=== PATIENT | female | born 2000 | race Hispanic/Latino ===

== ENCOUNTER 2022-04-15 06:13 | Emergency (ER) | payer MEDICAID, OTHER ==
[~2022-04-15] VITALS: Ht 154.9 cm; Wt 49.9 kg
[2022-04-15 06:23] VITALS: BP 111/71
[2022-04-15] MEDS ORDERED: BENZ-39 PO (07:22)
[2022-04-15] MEDS ORDERED: ALBUHFA IH (07:22)
[2022-04-15] MEDS ORDERED: ONDA4TAB10 PO (07:25)
== END 2022-04-15 07:28 | disposition home or self-care (01) ==
LOC: EDH 06:13
DX: U07.1 COVID-19 (principal); Z88.1 Allergy status to other antibiotic agents

== ENCOUNTER 2025-08-10 18:14 | Emergency (ER) | payer MEDICAID ==
[~2025-08-10] VITALS: Ht 154.9 cm; Wt 50.3 kg
[~2025-08-10 18:14] MED LIST: ALBUHFA IH; BENZ-39 PO; ONDA-243 PO
--- NOTE | 2025-08-10 18:37 | ERN ---
General Chief Complaint: Abdominal Pain in Stated Complaint: ABDOMINAL PAIN <20 WEEKS NAUSEA, VOMITING, Time Seen by MD: 18:21 Source: patient History of Present Illness Initial Comments PATIENT IS A 24-YEAR-OLD FEMALE COMING IN COMPLAINING OF NAUSEOUSNESS AND VOMITING. PER PATIENT SHE IS A AT 11 WEEKS BY DATE. SHE STATES HE WAS SEEN AT ANOTHER HOSPITAL AND WAS GIVEN MEDICATION BUT STATES IT IS NOT WORKING. NO FEVER NO CHILLS Allergies: Coded Allergies: amoxicillin (Unverified Allergy, Unknown, 04/15/22) Home Meds Active Scripts Ondansetron (Ondansetron Odt) 4 Mg Tab.rapdis, 4 MG PO TIDP PRN for NAUSEA/VOMITING, #12 TAB 0 Refills Prov:CRYSTAL RICHMOND MD 04/15/22 Benzonatate (Tessalon Perles) 100 Mg Cap, 100 MG PO TIDP PRN for COUGH, #20 CAP 0 Refills Prov:CRYSTAL RICHMOND MD 04/15/22 Albuterol Sulfate (Ventolin Hfa/Proventil Hfa/Proair Hfa) 90 Mcg/Puff Puff, 1-2 PUFF IH Q4H PRN for SHORTNESS OF BREATH for 5 Days, #1 INH 0 Refills PHARMACY TO DISPENSE 1 INHALER FOR USE Prov:CRYSTAL RICHMOND MD 04/15/22 Past Medical History Past Medical History: No Pertinent History Past Surgical History: Other Surgical History Other: CLEFT LIP Social History Social History: Other Female( History) LMP: May 24, 2025 : 1 Para: 0 Aborts: 0 ROS Dictation CONSTITUTIONAL: NO CHILLS, NO FEVER, NO WEAKNESS, NO DIAPHORESIS, NO MALAISE. HEAD/FACE: NO SIGNS OF TRAUMA. EENT: NO EYE PAIN, NO BLURRED VISION, NO TEARING, NO DOUBLE VISION, NO EAR PAIN, NO EAR DISCHARGE, NO NOSE PAIN, NO NASAL CONGESTION, NO THROAT PAIN, NO THROAT SWELLING, NO MOUTH PAIN. RESPIRATORY: NO COUGH, NO ORTHOPNEA, NO SOB, NO STRIDOR, NO WHEEZING. CARDIOVASCULAR: NO CHEST PAIN, NO EDEMA, NO PALPITATIONS, NO SYNCOPE. GASTROINTESTINAL/ABDOMINAL: NO ABDOMINAL PAIN, NO CONSTIPATION, NO DIARRHEA, NAUSEA, VOMITING. GENITOURINARY: NO ABNORMAL DISCHARGE, NO DYSURIA, NO FREQUENT URINATION, NO HEMATURIA. NO COMPLAINTS OF PAIN IN THE GENITALS. MUSCULOSKELETAL: NO BACK PAIN, NO GOUT, NO JOINT PAIN, NO JOINT SWELLING, NO MUSCLE PAIN, NO MUSCLE STIFFNESS, NO NECK PAIN. INTEGUMENTARY: NO CHANGE IN COLOR, NO CHANGE IN HAIR/NAILS, NO DRYNESS, NO LESION, NO LUMPS, NO RASH. NEUROLOGICAL/PSYCH: NO ANXIETY, NOT DEPRESSED, NO EMOTIONAL PROBLEM, NO HEADACHE, NO NUMBNESS, NO PRE-EXISTING DEFICIT, NO HISTORY OF SEIZURES, NO TREMORS, NO WEAKNESS. HEMATOLOGIC/LYMPHATIC: NOT ANEMIC, NO HISTORY OF BLOOD CLOTS, NO APPARENT BLEEDING, NO BRUISING, GLANDS NOT SWOLLEN. ALL SYSTEMS NEGATIVE, EXCEPT NOTED. Physical Exam Physical Exam Dictation VITAL SIGNS: REVIEWED. GENERAL APPEARANCE: ALERT, ORIENTED X3, NO ACUTE DISTRESS, OBESE. HEAD AND FACE: NON-TRAUMATIC. EYES: PERRL, PINK CONJUNCTIVAS, EYELID NO TRAUMA, ANTERIOR CHAMBER CLEAR. EARS: PINNAS INTACT AND NO SIGNS OF TRAUMA OR ERYTHEMA. EAR CANALS CLEAR AND NO DISCHARGE. TMS NO ERYTHEMA. NOSE: NO DISCHARGE, NO BLEEDING. OROPHARYNX: MOUTH NORMAL, TEETH NO CARIES, TONGUE PINK. PHARYNX CLEAR, NO ERYTHEMA. TONSILS NO EXUDATES, NO ABSCESSES NOTED. MUCOUS MEMBRANE MOIST. NECK: SUPPLE, NON-TENDER, NO THYROMEGALY, NO MASSES, NO JVD, NO BRUITS. BREAST: DEFERRED. CHEST: NO TENDERNESS, NO CREPITUS, NO PARADOXICAL MOVEMENT, NO RETRACTIONS. LUNGS: CLEAR, WELL-VENTILATED, SYMMETRIC, NO RALES, NO WHEEZING, NO RHONCHI, NO STRIDOR, GOOD BREATH SOUNDS BILATERALLY. HEART: REGULAR RATE, REGULAR RHYTHM, NO MURMUR, NO GALLOPS. VASCULAR: NO PERIPHERAL EDEMA. ABDOMEN: SOFT, POSITIVE BOWEL SOUNDS, NONDISTENDED, NO GUARDING, NONTENDER, NO REBOUND, NO MASSES NO HEPATOMEGALY, NO SPLENOMEGALY, NO TIMMONS'S SIGN, NO HERNIAS. RECTAL: DEFERRED. GENITAL: DEFERRED. NEUROLOGICAL: NORMAL SPEECH, GROSS MOTOR FUNCTION INTACT, GROSS SENSORY FUNCT ION INTACT. MUSCULOSKELETAL: NECK NONTENDER, FULL RANGE OF MOTION, BACK NONTENDER, FULL RANGE OF MOTION. EXTREMITIES: NONTENDER, FULL RANGE OF MOTION. SKIN: COLOR PINK, DRY, NO TURGOR, NO RASH, NO LACERATIONS, NO ABRASIONS, NO CONTUSIONS. LYMPHATICS: DEFERRED. Results Laboratory and Microbiology Lab and Micro Result Laboratory Tests Test 08/10/25 18:24 08/10/25 18:33 White Blood Count 10.2 K/uL (4.8-10.8) Red Blood Count 4.23 MIL/uL (4.00-5.50) Hemoglobin 12.7 g/dL (12.0-16.0) Hematocrit 35.1 % (36-48) L Mean Corpuscular Volume 83.0 fL (79-99) Mean Corpuscular Hemoglobin 30.0 pg (27.0-33.0) Mean Corpuscular Hemoglobin Concent 36.2 g/dL (32.0-36.0) H Red Cell Distribution Width 12.6 % (11.0-15.5) Platelet Count 201 K/uL (130-400) Mean Platelet Volume 10.1 fL (7.5-10.5) Immature Granulocyte % (Auto) 0.3 % (0-1) Neutrophils (%) (Auto) 75.8 % (40.0-77.0) Lymphocytes (%) (Auto) 16.9 % (21.0-51.0) L Monocytes (%) (Auto) 4.4 % (3.0-13.0) Eosinophils (%) (Auto) 1.8 % (0.0-8.0) Basophils (%) (Auto) 0.8 % (0.0-5.0) Neutrophils # (Auto) 7.7 K/uL (1.8-7.7) Lymphocytes # (Auto) 1.7 K/uL (1.0-4.8) Monocytes # (Auto) 0.5 K/uL (0.1-1.0) Eosinophils # (Auto) 0.18 K/uL (0.00-0.70) Basophils # (Auto) 0.08 K/uL (0.00-0.20) Absolute Immature Granulocyte (auto 0.03 K/uL (0-1) Nucleated Red Blood Cells 0.0 % (0.0-0.19) Sodium Level 137 mmol/L (136-145) Potassium Level 3.4 mmol/L (3.5-5.1) L Chloride Level 102 mmol/L (101-111) Carbon Dioxide Level 26 mmol/L (21-32) Blood Urea Nitrogen 10 mg/dL (7-18) Creatinine 0.8 mg/dL (0.5-1.0) Glomerular Filtration Rate Calc 106 mL/min (>90) Random Glucose 81 mg/dL (70-105) Total Calcium 8.9 mg/dL (8.5-10.1) Serum Test, Qualitative POSITIVE (NEGATIVE) H Urine Color YELLOW (YELLOW) Urine Appearance CLEAR (CLEAR) Urine pH 6.5 (5.0-8.0) Urine Specific [place] 1.027 (1.001-1.031) Urine Protein 10 mg/dL (NEGATIVE) H Urine Glucose (UA) NEGATIVE mg/dL (NEGATIVE) Urine Ketones 150 mg/dL (NEGATIVE) H Urine Occult Blood NEGATIVE (NEGATIVE) Urine Nitrate NEGATIVE (NEGATIVE) Urine Bilirubin NEGATIVE mg/dL (NEGATIVE) Urine Urobilinogen 0.2 mg/dL (0.2-1.0) Urine Leukocyte Esterase NEGATIVE Sergei/uL Urine RBC 2-5 /HPF (0-1) H Urine WBC 2-5 /HPF (0-1) H Urine Squamous Epithelial Cells FEW /HPF (0-2) Urine Bacteria None /HPF (None Seen) Urine Opiates Screen NEGATIVE (NEGATIVE) Urine Barbiturates Screen NEGATIVE (NEGATIVE) Urine Phencyclidine Screen NEGATIVE (NEGATIVE) Urine Amphetamines Screen NEGATIVE (NEGATIVE) Urine Benzodiazepines Screen NEGATIVE (NEGATIVE) Urine Cocaine Screen NEGATIVE (NEGATIVE) Urine Marijuana (THC) Screen POSITIVE (NEGATIVE) H Labs Reviewed?: Yes EKG/XRAY/US/CT/MRI Ultrasound Comment REASON: N/V ORDERING PHYSICIAN: YAN LUI MD PROCEDURE: OB <14 - US OB <14 WEEKS EXAMINATION: US Obstetrical, Complete <14 weeks CLINICAL HISTORY: Patient presents with nausea and vomiting. COMPARISON: None provided. TECHNIQUE: Transabdominal imaging of the maternal pelvis and a <14 week gestation with image documentation. FINDINGS: GESTATION: Last menstrual period: -. Gestational age by LMP: 11 weeks 1 day. Estimated gestational age is 10 weeks 5 days based on crown-rump length of 3.82 cm. Gestational sac measures 5.36 cm, corresponding to 10 weeks a4 days. heart rate is 184 bpm. Yolk sac is not visualised. UTERUS: The uterus measures 9.1 x 7.5 x 7.7 cm. No myometrial mass. CERVIX: Closed. Unremarkable. OVARIES: The right ovary measures 2.6 x 2.2 x 2.3 cm with a follicle measuring 1.0 x 0.7 x 0.7 cm. The left ovary measures 2.6 x 1.9 x 2.6 cm. Normal arterial and venous flow in both ovaries. FREE FLUID: No free fluid in the cul-de-sac. IMPRESSION: Single live intrauterine at 10 weeks 4 days gestation by crown-rump length. heart rate 184 bpm. No acute abnormality. /[place] DICTATED BY: CRYSTAL MOORE MD DATE: 08/10/252104 ELECTRONICALLY SIGNED BY: CRYSTAL MOORE MD DATE: 08/10/252104 MDM MDM: DIFFERENTIAL DIAGNOSIS: RATIONALE: TESTS CONSIDERED AND ORDERED SECONDARY TO SHARED DECISION MAKING INCLUDE: PREVIOUS OUTSIDE RECORDS REVIEWED: OLD ER VISITS. RISK OF COMPLICATION AND/OR MORBIDITY OR MORTALITY OF PATIENT MANAGEMENT: NONE MEDICATIONS-PER MEDICATION RECONCILIATION NEED FOR HOSPITALIZATION: PATIENT DOES NOT MEET CRITERIA FOR HOSPITALIZATION. NEED FOR EMERGENCY MAJOR/MINOR SURGERY: NO THERE ARE NO SOCIAL CONCERNS WITH THIS PATIENT. PRESCRIPTION DRUG MANAGEMENT PRESCRIPTIONS WILL INCLUDE SYMPTOMATIC CARE PATIENT'S PRIOR EXTERNAL MEDICAL RECORDS FROM OTHER ER VISITS WERE REVIEWED BY ME INDICATED. PRIOR TESTING AND RESULTS FROM PREVIOUS VISITS WERE REVIEWED. PRIOR TESTS WERE TAKEN INTO ACCOUNT WITH MEDICAL DECISION MAKING AND RESOURCE UTILIZATION, INDEPENDENT HISTORIAN/HISTORIANS WERE USED TO OBTAIN COMPLETE MEDICAL HISTORY. I INDEPENDENTLY INTERPRETED THE TEST THAT WERE PERFORMED, RESULTS WERE REVIEWED BY ME AND CONSIDERED FINDINGS ON RADIOLOGY IF ORDERED. MEDICAL MANAGEMENT AND EXAMINATION INTERPRETATION DISCUSSIONS WERE HAD BY ME WITH OTHER QUALIFIED HEALTHCARE PROFESSIONALS INDICATED FOR THE PATIENT'S CARE. 7:00 p.m. took over the care and received sign-out This is a 24-year-old female who is about 10 weeks presented to the emergency room with complaints of intractable nausea vomitings mild abdominal discomfort. She was in the ER 2 days ago for the same and received IV fluids and was given ondansetron. She stated that she had some relief but is unable to keep anything down and hence she came back in for further evaluation No fever chills or rigors. Temperature 99.3 pulse 90 respirations 13 blood pressure 117/83 with a pulse oximetry of 100% on room air Reviewed labs CBC is with a normal limits BNP 7 showed a potassium of 3.4 urinalysis did not show any evidence of UTI. 8:10 p.m. OB ultrasound results reviewed-single live fetus noted. No other abnormalities. 8:25 p.m. I reassessed her and she is admitting to feeling significantly better with the IV fluids and symptomatic management. I recommended combination of doxylamine and vitamin B6 combination for her hyperemesis gravidarum. I encourage fluids and electrolytes. She and her partner verbalized full understanding Patient stated that once she found out that she was she quit marijuana, alcohol ED Course Orders Procedure Category Date Status Time Cbc With Differential LAB 08/10/25 In Process 18:23 Basic Metabolic Panel LAB 08/10/25 Complete 18:23 Urinalysis LAB 08/10/25 Complete W/Microscopic 18:23 Testing, LAB 08/10/25 Complete Serum Hcg 18:23 Drug Screen Urine LAB 08/10/25 Complete 18:23 0.9%Nacl 1000ml (Ns PHA 08/10/25 Complete 1000ml) 18:30 Us Ob <14 Weeks US 08/10/25 Resulted 18:23 Current Medications Medications (Trade) Dose Ordered Sig/Nancy Route PRN Reason Start Time Stop Time Status Last Admin Dose Admin Sodium Chloride 1,000 ml @ 0 mls/hr ONCE ONCE IV 08/10/25 18:30 08/10/25 18:31 DC 08/10/25 18:49 Vital Signs Date Time Temp Pulse Resp B/P (MAP) Pulse Ox O2 Delivery O2 Flow Rate FiO2 08/10/25 19:53 98.2 93 18 132/77 98 Room Air* 0 21 08/10/25 18:55 98.2 92 20 123/75 100 Room Air* 0 21 08/10/25 18:20 99.3 90 13 117/83 100 Room Air 0 DX & DISP Disposition: Discharge Departure Impression: Primary Impression: Hyperemesis gravidarum Additional Impression: Cannabis use disorder Condition: Stable Scripts Ondansetron (Ondansetron Odt) 4 Mg Tab.rapdis 4 MG PO Q6HPRN PRN for nausea, #16 TAB 0 Refills Prov: DIPTI PETIT MD 08/10/25 Doxylamine Succinate/Vit B6 (Bon[place] ER 20-20 mg Tablet) 20 Mg-20 Mg Tab.ir.dr 1 TAB PO BID for 15 Days, #30 TAB 0 Refills Prov: DIPTI PETIT MD 08/10/25 Additional Instructions: Patient and the caregiver have been informed of all the diagnostic tests and the imaging conducted during the today's visit to the emergency room and has verbalized understanding of the results I have personally reviewed and interpreted all diagnostic exams performed here in the ER today as well as the vital signs documented by the nursing staff. The patient is now being discharged to home and should follow up with the primary care physician or the specialist as directed by the ER staff. Follow-up with primary care provider in 1 to 2 days. Take medications as directed here in the emergency room. Okay to continue home medications unless otherwise discussed during your visit in the emergency room today. Return to your nearest emergency room if symptoms worsen or if there is no improvement. Call 911 if you need immediate assistance. Take Tylenol or Motrin [id number] as needed and if no contraindications are present. Increase oral hydration. A wound culture or urine culture was ordered here in the emergency room department please follow-up with primary care provider and advise them to get repeat ports from our facility. If you had any Sandro wrap/splints that were applied here, please do not remove them until you see your primary care or specialty. Referrals: SHORTY AZEVEDO MD (PCP) YAN LUI MD Aug 10, 2025 18:36 DIPTI PETIT MD Aug 10, 2025 20:27
[2025-08-10 18:45] LABS: APPEARANCE,URINE CLEAR (CLEAR); GLUCOSE, URINE (UA) NEGATIVE (NEGATIVE); LEUKOCYTE ESTERASE ,URINE NEGATIVE Leu/uL (NEGATIVE); NITRATE,URINE NEGATIVE (NEGATIVE); OCCULT BLOOD,URINE NEGATIVE (NEGATIVE)
[2025-08-10] MEDS: 0.9%NACL 1000ML 1,000 ML IV ONE (18:49)
[2025-08-10 18:50] LABS: SQUAMOUS EPITHELIAL CELL,UR FEW /HPF (0-2)
[2025-08-10 18:53] LABS: AMPHET/METH SCREEN,URINE NEGATIVE (NEGATIVE); BARBITURATE SCREEN, URINE NEGATIVE (NEGATIVE); CANNABINOID SCREEN,URINE POSITIVE (NEGATIVE); COCAINE SCREEN,URINE NEGATIVE (NEGATIVE)
[2025-08-10 18:55] LABS: IMMATURE GRANULOCYTE ABSOLUTE 0.03 K/uL (0-1); NUCLEATED RED BLOOD CELLS 0.0 % (0.0-0.19); PLATELET COUNT (AUTO) 201 K/uL (130-400); RED BLOOD CELL COUNT(AUTO) 4.23 MIL/uL (4.00-5.50); RED CELL DISTRIBUTION WIDTH 12.6 % (11.0-15.5); WHITE BLOOD COUNT (AUTO) 10.2 K/uL (4.8-10.8)
[2025-08-10 19:03] LABS: CREATININE 0.8 mg/dL (0.5-1.0); GLOMERULAR FILTR. RATE CALC 106.0 mL/min (>90); GLUCOSE,RANDOM 81.0 mg/dL (70-105); SODIUM SERUM 137.0 mmol/L (136-145); UREA NITROGEN, BLOOD 10.0 mg/dL (7-18)
--- NOTE | 2025-08-10 19:37 | NUR ---
ULTRASOUND AT BEDSIDE.
--- NOTE | 2025-08-10 20:05 | HMCIMG ---
EXAMINATION: US Obstetrical, Complete <14 weeks CLINICAL HISTORY: Patient presents with nausea and vomiting. COMPARISON: None provided. TECHNIQUE: Transabdominal imaging of the maternal pelvis and a <14 week gestation with image documentation. FINDINGS: GESTATION: Last menstrual period: =+-. Gestational age by LMP: 11 weeks 1 day. Estimated gestational age is 10 weeks 5 days based on crown-rump length of 3.82 cm. Gestational sac measures 5.36 cm, corresponding to 10 weeks a4 days. heart rate is 184 bpm. Yolk sac is not visualised. UTERUS: The uterus measures 9.1 x 7.5 x 7.7 cm. No myometrial mass. CERVIX: Closed. Unremarkable. OVARIES: The right ovary measures 2.6 x 2.2 x 2.3 cm with a follicle measuring 1.0 x 0.7 x 0.7 cm. The left ovary measures 2.6 x 1.9 x 2.6 cm. Normal arterial and venous flow in both ovaries. FREE FLUID: No free fluid in the cul-de-sac. IMPRESSION: Single live intrauterine at 10 weeks 4 days gestation by crown-rump length. heart rate 184 bpm. No acute abnormality. /[place]
[2025-08-10] MEDS ORDERED: DOXY1TAB6 PO (20:15)
[2025-08-10] MEDS ORDERED: ONDA-243 PO (20:23)
[2025-08-10 20:46] VITALS: BP 132/77; PULSE 88; RESP 18; TEMP 98.3; O2SAT 98
== END 2025-08-10 20:48 | disposition home or self-care (01) ==
LOC: EDH 18:14
DX: O21.0 Mild hyperemesis gravidarum (principal); O99.321 Drug use complicating pregnancy, first trimester; F12.10 Cannabis abuse, uncomplicated; Z3A.11 11 weeks gestation of pregnancy; Z88.0 Allergy status to penicillin; Z87.730 Personal history of (corrected) cleft lip and palate
CPT/HCPCS: 99284; 96360; 76801; 80048; 80305; 84703; 85025; 36415; 81001; J7030